=== PATIENT | female | born 1945 | race Caucasian/White ===

== ENCOUNTER 2017-12-28 02:03 | Inpatient (IN) | payer OTHER, MEDICARE ==
[~2017-12-28] VITALS: Ht 158.8 cm; Wt 100.7 kg
[~2017-12-28 02:03] MED LIST: ASPIRIN EC325 M2 PO; CLARINEX5 M1 PO; COLACE100 M1 PO; DILAUDID2 M1 PO; GABAPENTIN300 M2 PO; MIRALAX17 G1 PO; MULTI-VITAMIN1 EACH; MYSOLINE50 M1 PO; PROPRANOLOL HC120 M1 PO; PROTONIX20 M1 PO; SINGULAIR10 M1 PO; VANCO 1 GR1 GM/250 M IV; VESICARE10 MG PO
[2017-12-28] MEDS ORDERED: FLONASE ALLERG9.9 ML NAS (11:34)
[2017-12-28] MEDS ORDERED: VITAMIN B122500 MC1 PO (11:35)
[2017-12-28] MEDS ORDERED: VITAMIN D31000 UNI2 PO (11:36)
[2017-12-28] MEDS ORDERED: PROAIR HFA8.5 GM IH (11:37)
[2017-12-28] MEDS ORDERED: COLACE100 M1 PO ×2 (11:38→14:27)
--- NOTE | 2017-12-28 14:22 | Admission Core Measures ---
Acute Coronary Syndrome (CM) ACS Core Measures Acute Coronary Syndrome Diagnosis No Congestive Heart Failure (NEW) CHF Core Measures Congestive Heart Failure Diagnosis No Cerebrovascular Accident (NEW) CVA Core Measures CVA/TIA Diagnosis No Venous Thromboembolism VTE Core Anita (View Protocol) VTE Risk Factors VTE (Previous) No Mechanical VTE Prophylaxis d/t N/A MechProphylax Ordered No VTE Pharm Prophylaxis d/t NA PharmProphylax ordered Problem List As ranked by this Provider includes Assessment & Plan 1. Status post revision of total replacement of right knee HOME MEDS Home Med List Albuterol Sulfate (Proair Hfa) 90 MCG HFA.AER.AD 2 INH IH EVERY 6 HRS PRN SOB (Reported) Cholecalciferol (Vitamin D3) 1,000 UNIT TABLET 2 IU PO DAILY SUPP (Reported) Cyanocobalamin (Vitamin B-12) (Vitamin B12) 2,500 MCG TABLET 1,000 IU PO DAILY SUPP (Reported) Desloratadine (Clarinex) 5 MG TABLET 1 TAB PO DAILY ALLERGIES (Reported) Docusate Sodium (Colace) 100 MG CAPSULE 1 TAB PO 2 TIMES DAILY STOOL SOFTENER (Reported) Fluticasone Propionate (Flonase Allergy Relief) 50 MCG/ACTUATION SPRAY.SUSP 1- 2 NS LEONIDAS DAILY SINUS (Reported) Gabapentin 300 MG CAPSULE 1 CAP PO BID PAIN (Reported) Montelukast Sodium (Singulair) 10 MG TABLET 1 TAB PO DAILY ALLERGIES ( Reported) Primidone (Mysoline) 50 MG TABLET 1 TAB PO DAILY TREMOR (Reported) Propranolol HCl (Propranolol HCl ER) 120 MG CAP.SA.24H 1 CAP PO DAILY CARDIAC (Reported) Solifenacin Succinate (Vesicare) 10 MG TABLET 1 TAB PO DAILY oab (Reported)
[2017-12-28] MEDS ORDERED: DILAUDID2 M1 PO (14:27)
[2017-12-28] MEDS ORDERED: PRILOSEC OTC20 M1 PO (14:27)
[2017-12-28] MEDS ORDERED: MIRALAX17 G1 PO (14:27)
[2017-12-28] MEDS ORDERED: ASPIRIN EC325 M2 PO (14:27)
--- NOTE | 2017-12-28 14:32 | Patient Discharge Instructions ---
Discharge Instructions General Discharge Information You were seen/treated for: Right knee revision total knee replacement You had these procedures: Revision right total knee replacement Watch for these problems: Increasing pain despite the use of pain medication Increasing redness, warmth or swelling Drainage of any type from incision Inability to bear weight on operative leg Persistent nausea and vomiting Fever greater than 101.5 degrees Do not soak the wound: Yes No bath, but you may shower: Yes Other wound care: Please keep wound clean and dry. No ointments or lotions of any type on or near incision at any time. No exceptions. Your dressing will be changed by your nurse on the second day after your surgery. Daily dry dressing changes are recommended each day thereafter. Do not soak your wound in a bath at any time until otherwise indicated by your surgeon. You may shower, please dry wound immediately after shower with a clean towel. Special Instructions: Aspirin: You are taking this medication to help prevent blood clot formation. Please take with food to protect your stomach lining. Please take as directed. Constipation: Pain medication can cause constipation. Dr. Mills has recommended that you take Colace and miralax each day. You may discontinue this medication if you develop loose stool or diarrhea. If you wish to continue this medication, it is available over the counter. If you are unable to move your bowels after several days, if you are unable to pass gas and are developing bloating, nausea, or vomiting as a result, please contact your doctor. Diet Continue normal diet: No Recommended Diet: Regular Activity Full Activity/No Limits: No Activity Self Limited: Yes Pounds, do NOT lift more than: 10 Acute Coronary Syndrome Inclusion Criteria At DC or during hospital stay patient has or had the following: ACS DIAGNOSIS No Discharge Core Measures Meds if any: Prescribed or Continued at Discharge Meds if any: NOT Prescribed or Continued at Discharge Congestive Heart Failure Inclusion Criteria At DC or during hospital stay patient has or had the following: CHF DIAGNOSIS No Discharge Core Measures Meds if any: Prescribed or Continued at Discharge Meds if any: NOT Prescribed or Continued at Discharge Cerebrovascular accident Inclusion Criteria At DC or during hospital stay patient has or had the following: CVA/TIA Diagnosis No Discharge Core Measures Meds if any: Prescribed or Continued at Discharge Meds if any: NOT Prescribed or Continued at Discharge Venous thromboembolism Inclusion Criteria VTE Diagnosis No VTE Type NONE VTE Confirmed by (Test) NONE Discharge Core Measures - Per Current guidelines, there needs to be overlap - treatment for the first 5 days of Warfarin therapy. - If discharged on Warfarin prior to 5 days of - overlap therapy, the patient will need to be - assessed for post discharge needs including - *Post discharge parental anticoagulation - *Warfarin and/or parental anticoagulation education - *Follow up date to check INR post discharge At least 5 days overlap therapy as Inpatient No Meds if any: Prescribed or Continued at Discharge Note: Overlap Therapy is Warfarin and Anticoagulant Meds if any: NOT Prescribed or Continued at Discharge
--- NOTE | 2017-12-28 14:34 | Surgical Discharge Summary ---
Visit Information Visit Dates Admission Date: 12/28/17 Discharge Date: 12/30/17 History of Present Illness Chief Complaint: Right knee pain s/p R TKR Medical History Neurological: TREMOR CARPAL TUNNEL SCIATICA EENT: NONE Cardiovascular: NONE Respiratory: NONE Gastrointestinal: NONE Hepatic: NONE Renal: urinary incontinence Musculoskeletal: osteoarthritis, psoariatic arthritis, spinal stenosis Psychiatric: NONE Endocrine: NONE Blood Disorders: NONE Cancer(s): endometrial cancer UROGYNAECOLOGIST/Reproductive: NONE Other Medical Hx: Seasonal allergies History of MRSA: No History of VRE: No History of CDIFF: No Isolation History: Standard Influenza Vaccine: 09/02/17 Surgical History Pertinent Surgical History: hysterectomy, knee replacement (bilateral) Psychosocial History Who Do You Live With? Son Services at Home: None What is Your Primary Language? Divehi Review of Systems: See H&P Hospital Course Course Attending Physician: Ming Mills MD Primary Care Physician: Oneil BETANCOURT,[facility] Hospital Course: Patient was admitted to the hospital for a revision total joint replacement. The procedure was tolerated well and patient was transferred to a general surgical floor. Diet was advanced and tolerated, and the patient voided spontaneously. The patient was evaluated and treated by physical therapy. At the time of hospital discharge, the vital signs were stable, neurovascular status was intact, and pain was controlled with the use of oral pain medications. Allergies: Coded Allergies: Penicillins (RASH 10/06/17) codeine (GI UPSET 10/06/17) shellfish derived (ASTHMA 10/06/17) Disposition Summary Disposition Principal Diagnosis: Right knee revision tkr Additional Diagnosis: Same Discharge Disposition: home health services Discharge Instructions General Discharge Information Code Status: Full Code Patient's Diet: Regular, advance as tolerated Patient's Activity: WBAT Follow-Up Instructions/Appts: Follow up with Dr. Mills in 6 weeks from date of surgery. Please call office to arrange/confirm this appointment Medications at Discharge Discharge Medications: Continue taking these medications: Gabapentin (Gabapentin) 300 MG CAPSULE 1 Capsule ORAL TWICE DAILY Comments: Last Taken: 10/09/17 Time: 930 AM Propranolol HCl (Propranolol HCl ER) 120 MG CAP.SA.24H 1 Capsule ORAL DAILY Comments: Last Taken: 10/09/17 Time: 930 AM Multivitamin (Multi-Vitamin Daily) 1 EACH TABLET Comments: NOT GIVEN IN HOSPITAL Desloratadine (Clarinex) 5 MG TABLET 1 Tablet ORAL DAILY Comments: NOT GIVEN IN HOSPITAL, CALRITIN GIVEN 10/09/17 @ 0950 AM Montelukast Sodium (Singulair) 10 MG TABLET 1 Tablet ORAL DAILY Comments: Last Taken: 10/08/17 Time: 930 PM Primidone (Mysoline) 50 MG TABLET 1 Tablet ORAL DAILY Comments: Last Taken: 10/09/17 Time: 930 AM Solifenacin Succinate (Vesicare) 10 MG TABLET 1 Tablet ORAL DAILY Comments: NOT GIVEN IN HOSPITAL Fluticasone Propionate (Flonase Allergy Relief) 50 MCG/ACTUATION SPRAY.SUSP 1-2 Nasal spray In the nose DAILY Cyanocobalamin (Vitamin B-12) (Vitamin B12) 2,500 MCG TABLET 1,000 International Unit ORAL DAILY Cholecalciferol (Vitamin D3) 1,000 UNIT TABLET 2 International Unit ORAL DAILY Albuterol Sulfate (Proair Hfa) 90 MCG HFA.AER.AD 2 Inhalation INHALATION EVERY 6 HRS as needed for SOB Docusate Sodium (Colace) 100 MG CAPSULE 1 Tablet ORAL 2 TIMES DAILY Start taking the following new medications: Aspirin (Ecotrin*) 325 MG TABLET.DR 1 Tablet ORAL TWICE DAILY Qty = 60 No Refills Docusate Sodium (Colace) 100 MG CAPSULE 1 Capsule ORAL TWICE DAILY Qty = 14 No Refills Instructions: DISCONTINUE USE IF YOU DEVELOP LOOSE STOOL OR DIARRHEA Polyethylene Glycol 3350 (Miralax) 17 GRAM POWD.PACK 1 Packet ORAL DAILY Qty = 7 No Refills Instructions: dissolve in water, DISCONTINUE USE IF YOU DEVELOP LOOSE STOOL OR DIARRHEA Omeprazole Magnesium (Prilosec Otc) 20 MG TABLET.DR 1 Tablet ORAL DAILY Qty = 30 No Refills Hydromorphone HCl (Dilaudid) 2 MG TABLET 1-2 Tablet ORAL EVERY 4-6 HOURS NEEDED as needed for PAIN Qty = 36 No Refills
--- NOTE | 2017-12-28 16:30 | Operative Report ---
Operative/Inv Procedure Report Surgery Date: 12/28/17 Name of Procedure: Right total knee revision Pre-Operative Diagnosis: Right knee spacer block Post-Operative Diagnosis: Same Estimated Blood Loss: 50ml to 100ml Surgeon/Practice Advisor: Gene BETANCOURT,Ming Pratt Anesthesia: block Operative/Procedure Note Note: Description of Procedure: The patient was taken to the operating room and positively identified. After induction of spinal anesthesia and administration of appropriate pre-operative antibiotics, the patient was positioned supine on the operating room table and all bony prominences were well padded. A well-padded pneumatic tourniquet was placed on the right upper thigh. After performing a surgical timeout, the [side] lower extremity was prepped and draped in the usual sterile fashion. After exsanguination with Esmarch the tourniquet was inflated to 250mm of mercury. aUtilizing the previous incision, a standard medial parapatellar approach was made to the knee. This was carried down through skin and subcutaneous tissue to the level of the fascia. Meticulous hemostasis was maintained with Bovie electrocautery. The extensor mechanism and patellar retinaculum were opened sharply. Scar tissue was excised from the medial and lateral gutters. Samples of synovium were sent for microbiologic analysis. Utilizing osteotomes, the previously placed a sterile block was removed. All retained cement was curetted. Exposure continued until the sterile femur and proximal tibia could be fully exposed. The tibial and femoral canals were then sequentially reamed. Starting with the tibia proximal cut was refreshed utilizing a reamer as an intramedullary guide. The tibia was then trialed with a size 3 tibial baseplate and a size 11 mm x 100 mm fluted tibial stem. This yielded an excellent fit. Attention was then turned to the femur. After sequentially reaming the femur, the distal femoral cut was refreshed utilizing the reamer as an intramedullary guide. The flexion and extension gaps were then checked. The femoral box was deepened and widened as appropriate for this particular implant. The femur was then trialed with a size 3 total stabilized femoral component, a 16 mm x 100 mm fluted stem and a pair of 5 mm distal augments medially and laterally. A 5 mm posterior lateral augment was also utilized to ensure proper femoral rotation. This yielded an excellent fit. The knee was then trialed with a size 3 x 22 mm total stabilized tibial insert. The patella cut was refreshed and sized to accept an A35 patella. This yielded excellent range of motion, stability and patellar tracking. All trial components were removed and the knee was copiously irrigated with sterile saline. All components were cemented into place with [employer] Simplex cement. All the components were of the [employer] Triathlon knee system of the above stated sizes. The knee was again irrigated after cementation. A medium Hemovac drain was left within the knee. The extensor mechanism and patellar retinaculum were repaired using interrupted #1 vicryl suture. The skin was re- approximated with 2-0 vicryl and closed with teresa. A sterile dressing was applied, the tourniquet was deflated, the patient was awakened and taken to the recovery room in satisfactory condition.
--- NOTE | 2017-12-28 18:46 | PN- Orthopedic ---
Subjective Subjective: Post op check Awake and alert post op No complaints at this time Denies nausea, pain is well controlled Objective Vital Signs and I&Os VSS, afebrile Physical Exam: General: alert and oriented times three Ext: warm, no edema, On q in place - awaiting medication pump, Sure trans drain in place dressing is clean and dry normosensate BLE with good 5/5 GURMEET BLE Current Medications: Current Medications Sig/West Start time Last Medication Dose Route Stop Time Status Admin Acetaminophen 0 .STK-MED ONE 12/28 1155 DC PO Acetaminophen 975 MG ONCE 12/28 0000 NR PO 12/28 235 Albuterol Sulfate 2 PUF Q6P PRN 12/28 1400 AC INH Cefazolin Sodium 2,000 MG ONCE 12/28 0000 NR IV 12/28 235 Fentanyl Citrate 100 MCG .STK-MED ONE 12/28 0641 DC IM 12/28 0642 Fluticasone 2 SPRAY DAILY 12/29 1000 AC Propionate LEONIDAS Gabapentin 300 MG BID 12/28 2200 AC PO Midazolam HCl 4 MG .STK-MED ONE 12/28 0642 DC IM 12/28 0643 Montelukast Sodium 10 MG DAILY 12/29 1000 AC PO Multivitamins 1 TAB DAILY 12/29 1000 AC Therapeutic PO Oxybutynin Chloride 5 MG BID 12/28 2200 AC PO Oxycodone HCl 0 .STK-MED ONE 12/28 1155 DC PO Oxycodone HCl 10 MG ONCE 12/28 0000 NR PO 12/28 2359 Primidone 50 MG DAILY 12/29 1000 AC PO Propranolol HCl 120 MG DAILY 12/29 1000 AC PO Ropivacaine 500 ML ONCE ONE 12/28 1715 DC ON-Q Ball 1 BAG INJ 12/28 1716 Scopolamine HBr 0 .STK-MED ONE 12/28 1155 DC TOP Tranexamic Acid 2,000 MG .STK-MED ONE 12/28 0641 DC IV 12/28 0642 Assessment/Plan Assessment/Plan 72yo female s/p revision R TKR pain management PT - WBAT asa 325mg po bid On Q per anesthesia follow up sure trans drain in am Core Measures Venous Thromboembolism VTE Risk Factors VTE (Previous) No Mechanical VTE Prophylaxis d/t N/A MechProphylax Ordered No VTE Pharm Prophylaxis d/t NA PharmProphylax ordered
[2017-12-28 19:05] VITALS: BP 126/80
[2017-12-28 21:00] VITALS: BP 112/70
[2017-12-28 23:00] VITALS: BP 110/60
[2017-12-29 01:02] VITALS: BP 110/68
[2017-12-29 05:00] VITALS: BP 108/58
--- NOTE | 2017-12-29 08:20 | PN- Orthopedic ---
Subjective Subjective: Pain is well controlled, no complaints, no acute events overnight Objective Vital Signs and I&Os Vital Signs Date Time Temp Pulse Resp B/P B/P Pulse O2 O2 Flow FiO2 Mean Ox Delivery Rate 12/29 0500 97.4 71 20 108/58 97 Room Air 12/29 0102 97.7 71 20 110/68 97 Room Air 12/28 2300 97.6 67 18 110/60 98 12/28 2100 97.4 69 20 112/70 97 12/28 1905 97.5 75 18 126/80 96 Room Air Intake & Output 12/29 1600 12/29 0800 12/29 0000 12/28 1600 12/28 0800 12/28 0000 Intake Total 1300 Output Total 330 Balance 970 Intake, IV 300 Intake, Oral 1000 Output, 80 Drainage Output, Urine 250 Patient 222 lb Weight Physical Exam: Well-developed well-nourished no apparent distress. HEENT: Atraumatic, extraocular motion intact Neck: Supple, no lymphadenopathy Respiratory: No respiratory distress Extremities: No edema Right lower extremity dressing in place, Mild joint effusion On Q in place Hemovac drain in place, small amount of bloody drainage noted Range of motion is 0-60. Compression wrap in place. ALPS in place Neurovascularly intact distally Bilateral calves are supple, nontender. Neuro: Alert and oriented x3 Psych: Mood affect normal, normal memory normal judgment. Skin: Warm and dry, no rash on exposed skin Assessment/Plan Assessment/Plan Postop day 1 status post revision right total knee arthroplasty Perioperative antibiotics. Pain medication as needed. Out of bed Physical therapy, weightbearing as tolerated DC IV fluids Regular diet Follow a.m. labs Aspirin for DVT prophylaxis ALPS for DVT prophylaxis Regular home meds possible DC hemovac drain later today, will DW Dr Mills Dressing change postop day 2 Core Measures Venous Thromboembolism VTE Risk Factors VTE (Previous) No Mechanical VTE Prophylaxis d/t N/A MechProphylax Ordered No VTE Pharm Prophylaxis d/t NA PharmProphylax ordered
[2017-12-29 08:55] LABS: ABSOLUTE BASOPHIL COUNT 0 /CUMM (0.0-0.2); ABSOLUTE EOSINOPHIL COUNT 0 /CUMM (0.0-0.7); ABSOLUTE GRANULOCYTE CT 6.9 /CUMM (1.4-6.5); ABSOLUTE LYMPH COUNT 1.1 /CUMM (1.2-3.4); ABSOLUTE MONOCYTE COUNT 0.7 /CUMM (0.10-0.60); BASOPHIL % 0.1 % (0.0-2.0); EOSINOPHIL % 0 % (0-5); GRANULOCYTE % 79.2 % (42.2-75.2); HEMATOCRIT 33.6 % (37-47); MEAN CORPUSCULAR HGB 28.2 PG (27.0-31.0); MEAN CORPUSCULAR HGB CONC 33.2 G/DL (33.0-37.0); MEAN CORPUSCULAR VOLUME 84.9 FL (81.0-99.0); MEAN PLATELET VOLUME 9.2 FL (7.4-10.4); PLATELET COUNT 164 /CUMM (130-400); RBC DISTRIBUTION WIDTH 14.9 % (11.5-14.5); RED BLOOD CELL CT 3.95 /CUMM (4.20-5.40); WHITE BLOOD CELL COUNT 8.7 /CUMM (4.8-10.8)
[2017-12-29 09:30] VITALS: BP 106/50
[2017-12-29 14:21] VITALS: BP 100/46
[2017-12-29 22:13] VITALS: BP 110/60
[2017-12-30 02:24] VITALS: BP 112/64
[2017-12-30 06:00] VITALS: BP 118/64
--- NOTE | 2017-12-30 07:31 | PN- Orthopedic ---
Subjective Subjective: POD#2 S/P RIGHT TKA RE IMPLANT DOING WELL DALTONS CP, SOB, NO N+V WITH DIET AMBULATING WELL WITH PT NO MAJOR ISSUES OVERNIGHT Objective Vital Signs and I&Os Vital Signs Date Time Temp Pulse Resp B/P B/P Pulse O2 O2 Flow FiO2 Mean Ox Delivery Rate 12/30 0600 98.2 65 18 118/64 100 Room Air 12/30 0224 98.1 65 20 112/64 96 Room Air 12/29 2213 98.1 77 18 110/60 96 Room Air 12/29 1421 97.7 73 18 100/46 98 12/29 0948 64 106/50 12/29 0930 98.0 64 18 106/50 95 Room Air Intake & Output 12/30 0800 12/30 0000 12/29 1600 12/29 0800 12/29 0000 12/28 1600 Intake Total 2850 126 7094 1300 Output Total 1150 301 633 3155 330 Balance -1150 240 175 -790 970 Intake, IV 75 685 300 Intake, Oral 1000 [phone] Number 0 0 Bowel Movements Output, 60 100 75 80 Drainage Output, Urine 1150 441 024 3261 250 Patient 222 lb Weight Physical Exam: CV: RRR LUNGS: CLEAR ABD: SOFT, +BS EXT: DRSG CHANGED, DRAIN D/C'D WOUND C/D/I DISTAL CMS INTACT NO CALF TENDERNESS BILAT Assessment/Plan Assessment/Plan ORTHO STBLE PLAN CONT OOB WITH PT D/C LATER TODAY Core Measures Venous Thromboembolism VTE Risk Factors VTE (Previous) No Mechanical VTE Prophylaxis d/t N/A MechProphylax Ordered No VTE Pharm Prophylaxis d/t NA PharmProphylax ordered
[2017-12-30] MEDS ORDERED: COLACE100 M1 PO (07:34)
[2017-12-30] MEDS ORDERED: ASPIRIN EC325 M2 PO (07:34)
[2017-12-30] MEDS ORDERED: MIRALAX17 G1 PO (07:34)
[2017-12-30] MEDS ORDERED: DILAUDID2 M1 PO (07:34)
[2017-12-30] MEDS ORDERED: PRILOSEC OTC20 M1 PO (07:34)
[2017-12-30 10:00] VITALS: BP 124/70
[2017-12-30 13:59] VITALS: BP 100/58
== END 2017-12-30 17:15 | disposition home health service (06) | DRG 468 ==
LOC: 2NA 02:03 → SDA 02:03 → ENRESERV 17:16 → ENTRNSPT 18:36 → EDTRNSPT 18:43 → EDTRNSPTSTS 18:43 → 2NA 18:58 → CMPTRNSPT 19:05 → ENPENDDIS 12-30 07:43 → ENTRNSPT 12-30 17:00 → EDTRNSPTSTS 12-30 17:06 → EDTRNSPT 12-30 17:06 → 2NA 12-30 17:15 → CMPTRNSPT 12-30 17:18
PROVIDERS: Nurse Practitioner
PROC: 0SPC08Z Removal of Spacer from Right Knee Joint, Open Approach (ICD-10-PCS; principal; 2017-12-28)
PROC: 0SRC0J9 Replacement of Right Knee Joint with Synthetic Substitute, Cemented, Open Approach (ICD-10-PCS; principal; 2017-12-28)
PROC: 3E0T3BZ Introduction of Anesthetic Agent into Peripheral Nerves and Plexi, Percutaneous Approach (ICD-10-PCS; principal; 2017-12-28)
DX: Z47.33 Aftercare following explantation of knee joint prosthesis (principal); D69.6 Thrombocytopenia, unspecified; E66.01 Morbid (severe) obesity due to excess calories; L40.50 Arthropathic psoriasis, unspecified; Z68.39 Body mass index [BMI] 39.0-39.9, adult; E78.1 Pure hyperglyceridemia; M48.00 Spinal stenosis, site unspecified; E55.9 Vitamin D deficiency, unspecified; M85.80 Other specified disorders of bone density and structure, unspecified site; N32.81 Overactive bladder; M10.9 Gout, unspecified; R74.0 Nonspecific elevation of levels of transaminase and lactic acid dehydrogenase [LDH]; Z90.49 Acquired absence of other specified parts of digestive tract; Z90.710 Acquired absence of both cervix and uterus; J30.9 Allergic rhinitis, unspecified; Z79.51 Long term (current) use of inhaled steroids; G56.00 Carpal tunnel syndrome, unspecified upper limb; M54.30 Sciatica, unspecified side; Z85.42 Personal history of malignant neoplasm of other parts of uterus
CPT/HCPCS: 2NAP; 87070; 87075; 36415; 82436; 87086; 97110-GO; 97116-GO; 97161-GP; 97530-GO; C1713; EXP; J0131; J0690; J1200; J2405; J2550; J2795; J3490; J7042